=== PATIENT | female | born 1965 | race Caucasian/White ===

== ENCOUNTER 2016-04-07 12:24 | Emergency (ER) | payer SELFPAY ==
[2016-04-07 13:20] VITALS: BP 123/64
--- NOTE | 2016-04-07 14:16 | UC ---
Throat Pain/Nasal Jon HPI - HPI Summary HPI Summary: 50 year old female with complaints of sinus pain and pressure, nasal congestion and ear pressure x 1 week. Pain and pressure across her midface down into her upper teeth. States she has had a cough for 7 weeks. Was treated for bronchitis at that time but her symptoms did not completely improve. She denies chest pain or difficulty breathing. - History of Current Complaint Chief Complaint: UCRespiratory Stated Complaint: SINUSES Time Seen by Provider: 04/07/16 14:05 Hx Obtained From: Patient Hx Last Menstrual Period: N/A ?: No Onset/Duration: Gradual Onset, Lasting Weeks - 1, Still Present Severity: Moderate Pain Scale Used: 0-10 Numeric - 7 Cough: Nonproductive Associated Signs & Symptoms: Positive: Dysphagia - mild, Sinus Discomfort, Nasal Discharge, Fever - has resolved. Negative: FB Sensation, Drooling, Wheezing, Hoarseness, Vomiting, Rash - Epiglottits Risk Factors Epiglottis Risk Factors: Negative - Allergies/Home Medications Allergies/Adverse Reactions: Allergies Allergy/AdvReac Type Severity Reaction Status Date / Time Sulfa Antibiotics Allergy Rash Verified 04/07/16 13:10 PMH/Surg Hx/FS Hx/Imm Hx Previously Healthy: Yes Endocrine History Of: Reports: Diabetes Cardiovascular History Of: Reports: Hypertension Respiratory History Of: Denies: Asthma - Surgical History Surgical History: Yes Surgery Procedure, Year, and Place: C-SECT - Family History Known Family History: Positive: Hypertension Negative: Diabetes - Social History Occupation: Employed Full-time Lives: With Family Alcohol Use: None Substance Use Type: None Smoking Status (MU): Former Smoker When Did the Patient Quit Smoking/Using Tobacco: 29 YRS AGO - Immunization History Most Recent Influenza Vaccination: [id number] Most Recent Pneumonia Vaccination: 3691-3883 Review of Systems Constitutional: Fever - resolved, Fatigue Skin: Negative Eyes: Negative ENT: Sore Throat, Ear Ache, Nasal Discharge, Other - mid face pain and pressure down into upper teeth Respiratory: Cough Cardiovascular: Negative Gastrointestinal: Negative Genitourinary: Negative Motor: Negative Neurovascular: Negative Musculoskeletal: Negative Neurological: Headache - sinus Psychological: Negative All Other Systems Reviewed And Are Negative: Yes Physical Exam Triage Information Reviewed: Yes Appearance: No Pain Distress, Well-Nourished, Ill-Appearing - mildly Vital Signs: Initial Vital Signs Temp 97.7 F 04/07/16 13:13 Pulse 107 04/07/16 13:13 Resp 20 04/07/16 13:13 BP 123/64 04/07/16 13:13 Pulse Ox 93 04/07/16 13:13 Vital Signs Reviewed: Yes Eyes: Positive: Conjunctiva Clear. Negative: Discharge ENT: Positive: Hearing grossly normal, Pharyngeal erythema - mildly, Nasal congestion, Nasal drainage - white, TMs normal, Other: - maxillary and frontal sinus pain and pressure with palpation. Negative: Tonsillar swelling Neck: Positive: Supple, Nontender, No Lymphadenopathy Respiratory: Positive: Lungs clear, Decreased breath sounds, Other: - tight cough noted with deep inspiration. Negative: Crackles, Wheezing Cardiovascular: Positive: RRR, No Murmur Musculoskeletal: Positive: Strength Intact, ROM Intact Neurological: Positive: Alert, Muscle Tone Normal Psychological: Positive: Age Appropriate Behavior - pleasant and cooperative Skin: Negative: rashes, breakdown Throat Pain/Nasal Course/Dx - Course Course Of Treatment: chest xray - negative. Albuterol nebulizer. follow up plan established - Differential Dx/Diagnosis Differential Diagnosis/HQI/PQRI: Pharyngitis, Sinusitis, URI, Other - pneumonia Provider Diagnoses: Sinusitis. Acute Bronchitis Discharge - Discharge Plan Condition: Stable Disposition: HOME Prescriptions: RX: Albuterol HFA INHALER* [Ventolin HFA Inhaler*] 1 - 2 puff INH Q4H PRN #1 mdi PRN Reason: cough or wheezing Amoxicillin/Clavulanate TAB* [Augmentin TAB 875*] 875 mg PO BID #20 tab Patient Education Materials: Sinusitis (ED), Acute Bronchitis (ED) Referrals: Silvio Cyr [Primary Care Provider] -
[2016-04-07] MEDS ORDERED: Ibuprofen TAB* 600 MG PO ONE (14:41)
[2016-04-07] MEDS ORDERED: Albuterol 2.5 MG/3 ML NEB.SOL* (0.083%) INH ONE (14:46)
--- NOTE | 2016-04-07 14:48 | RAD ---
INDICATION: Cough x7 weeks COMPARISON: None TECHNIQUE: PA and lateral views of the chest were obtained. FINDINGS: The heart and mediastinum are normal in size and contour. The lungs are grossly clear. There is no evidence of large pleural effusion. Visualized bones are normal for the patient's age. There is no radiographic evidence of free air beneath the diaphragm IMPRESSION: No radiographic evidence of acute cardiopulmonary disease.
== END 2016-04-07 15:18 | disposition home or self-care (01) ==
LOC: UCCORT 12:24
DX: J32.9 Chronic sinusitis, unspecified (principal); J40 Bronchitis, not specified as acute or chronic; Z87.891 Personal history of nicotine dependence; Z88.2 Allergy status to sulfonamides
CPT/HCPCS: 71020; 94640; 99212; A9270-GY; G0463

== ENCOUNTER 2017-03-30 14:13 | Emergency (ER) | payer OTHER ==
--- NOTE | 2017-03-30 15:05 | UC ---
Respiratory Complaint HPI - HPI Summary HPI Summary: Worsening chest cold over the past 3 days, blood sugars have been good no fevers - History of Current Complaint Chief Complaint: UCRespiratory Stated Complaint: CONGESTION/COUGH Time Seen by Provider: 03/30/17 14:53 Hx Obtained From: Patient Hx Last Menstrual Period: N/A ?: No Onset/Duration: Sudden Onset, Lasting Days - 3, Still Present Timing: Constant Severity Initially: Mild Severity Currently: Moderate Character: Cough: Nonproductive Aggravating Factors: Nothing Alleviating Factors: Nothing Associated Signs And Symptoms: Positive: Chills, Pleuritic Chest Pain, URI - Allergies/Home Medications Allergies/Adverse Reactions: Allergies Allergy/AdvReac Type Severity Reaction Status Date / Time Sulfa Antibiotics Allergy Rash Verified 03/30/17 15:13 Home Medications: Home Medications Canagliflozin-Metformin HCl [Invokamet 150-500 mg] 1 tab PO DAILY 03/30/17 [ History Confirmed 03/30/17] Dulaglutide (NF) [Trulicity (NF)] 1.5 mg SUBCUT WEEKLY 03/30/17 [History Confirmed 03/30/17] PMH/Surg Hx/FS Hx/Imm Hx Previously Healthy: No Endocrine History: Diabetes Cardiovascular History: Hypertension Psychological History: Depression - Surgical History Surgical History: Yes Surgery Procedure, Year, and Place: C-SECT - Family History Known Family History: Positive: Hypertension Negative: Diabetes - Social History Occupation: Employed Full-time Lives: With Family Alcohol Use: None Substance Use Type: None Smoking Status (MU): Former Smoker When Did the Patient Quit Smoking/Using Tobacco: 29 YRS AGO - Immunization History Most Recent Influenza Vaccination: [id number] Most Recent Pneumonia Vaccination: 0726-2232 Review of Systems Constitutional: Chills, Fatigue Skin: Negative Eyes: Negative ENT: Negative Respiratory: Cough Cardiovascular: Negative Gastrointestinal: Negative Genitourinary: Negative Motor: Negative Neurovascular: Negative Musculoskeletal: Negative Neurological: Negative Psychological: Negative Is Patient Immunocompromised?: No All Other Systems Reviewed And Are Negative: Yes Physical Exam Triage Information Reviewed: Yes Appearance: Well-Appearing, No Pain Distress, Well-Nourished Vital Signs Reviewed: Yes Eye Exam: Normal Eyes: Positive: Conjunctiva Clear ENT Exam: Normal ENT: Positive: Normal ENT inspection, Hearing grossly normal, Pharynx normal, Nasal congestion, TMs normal, Uvula midline. Negative: Nasal drainage, Tonsillar swelling, Tonsillar exudate, Trismus, Muffled voice, Hoarse voice, Dental tenderness, Sinus tenderness Dental Exam: Normal Neck exam: Normal Neck: Positive: Supple, Nontender, No Lymphadenopathy Respiratory Exam: Normal Respiratory: Positive: Chest non-tender, Lungs clear, Normal breath sounds, No respiratory distress, No accessory muscle use Cardiovascular Exam: Normal Cardiovascular: Positive: RRR, No Murmur, Pulses Normal, Brisk Capillary Refill Musculoskeletal Exam: Normal Musculoskeletal: Positive: Strength Intact, ROM Intact, No Edema Neurological Exam: Normal Neurological: Positive: Alert, Muscle Tone Normal Psychological Exam: Normal Skin Exam: Normal Respiratory Course/Dx - Course Course Of Treatment: albuterol, flonase, increase fluids, monitor blood sugar, add zithromax follow with pcp - Differential Dx/Diagnosis Provider Diagnoses: Bronchitis, IDDM Discharge - Discharge Plan Condition: Stable Disposition: HOME Prescriptions: Albuterol HFA INHALER* [Ventolin HFA Inhaler*] 2 puff INH Q4H PRN #1 mdi PRN Reason: cough Azithromycin TAB* [Zithromax TAB (Z-LAUREN) 250 mg #6 tabs] 2 tab PO .TODAY, THEN 1 DAILY #1 lauren Guaifenesin-Codeine [Guaiatussin AC] 5 - 10 ml PO QID PRN #90 ml MDD 40 PRN Reason: Cough Patient Education Materials: How to Use a Metered-Dose Inhaler (ED), Acute Bronchitis (ED) Referrals: Silvio Cyr [Primary Care Provider] - If Needed
[2017-03-30 15:13] VITALS: BP 131/72
== END 2017-03-30 15:39 | disposition home or self-care (01) ==
LOC: UCCORT 14:13
DX: J40 Bronchitis, not specified as acute or chronic (principal); E11.8 Type 2 diabetes mellitus with unspecified complications; Z79.84 Long term (current) use of oral hypoglycemic drugs; Z87.891 Personal history of nicotine dependence
CPT/HCPCS: 99212; G0463